=== PATIENT | female | born 2000 | race Caucasian/White ===

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

== ENCOUNTER 2020-10-22 21:23 | Emergency (ER) | payer BC, OTHER ==
[~2020-10-22] VITALS: Ht 162.6 cm; Wt 57.1 kg
[2020-10-22] MEDS ORDERED: NEOPOLHCSU BOTHEARS (21:49)
== END 2020-10-22 22:01 | disposition home or self-care (01) ==
LOC: ER 21:23
DX: H92.03 Otalgia, bilateral (principal)
CPT/HCPCS: 99282; A9270